=== PATIENT | female | born 1990 | race Caucasian/White ===

== ENCOUNTER 2023-12-18 19:31 | Emergency (ER) | payer BC ==
[2023-12-18] MEDS ORDERED: Diphtheria,Pertussis(Acell),Tetanus Vaccine 0.5 ML Syringe IM ONE (20:32)
== END 2023-12-18 20:59 | disposition home or self-care (01) ==
LOC: JP.ED 19:31
DX: S60.454A Superficial foreign body of right ring finger, initial encounter (principal); Z23 Encounter for immunization; W45.8XXA Other foreign body or object entering through skin, initial encounter
CPT/HCPCS: 90471; 99283-25